=== PATIENT | male | born 1960 | race Caucasian/White ===

== ENCOUNTER 2024-12-10 19:37 | Inpatient (IN) ==
[2024-12-10 20:23] LABS: Hematocrit (blood only) 45.6 % (42.0-52.0); Hemoglobin 15.4 g/dl (14.0-18.0); Immature Granulocytes # (auto) 0.15 K/uL (0.01-0.20); Immature Granulocytes % (auto) 1.3 %; Mean Corpuscular Hemoglobin 30.4 pg (25.0-34.0); Mean Corpuscular Volume 89.9 fL (80.0-100.0); Platelet Count 171 K/uL (130-400); RDW Standard Deviation 41.2 fL (36.4-46.3); Red Blood Count 5.07 M/uL (4.70-6.10); White Blood Count 11.42 K/ul (4.8-10.8)
[2024-12-10 20:30] LABS: Alanine Aminotransferase 26.0 U/L (7-52); Albumin Globulin Ratio 1.6 (0.9-2); Alkaline Phosphatase 73.0 U/L (34-104); Anion Gap 8.0 (3-11); Bilirubin,Total 0.4 mg/dl (0.2-1.0); Blood Urea Nitrogen 22.0 mg/dl (6-23); Calcium 9.5 mg/dl (8.6-10.3); Carbon Dioxide 24.0 mmol/L (21-32); Chloride 109.0 mmol/L (98-107); Creatinine Clr Calc Pharmacy 77.4 ml/min; Globulin 2.8 gm/dl (2.5-4.0); Glucose 149.0 mg/dl (70-99(Fasting)); Lipase 18.0 U/L (11-82); Potassium 4.2 mmol/L (3.5-5.1); Sodium 141.0 mmol/L (136-145); Total Protein 7.2 gm/dl (6.0-8.3)
[2024-12-10 20:48] LABS: Appearance Urine Turbid (Clear); Epithelial Cell Urine 0-2 /hpf (0-2)
--- NOTE | 2024-12-10 21:03 | Emergency Department Note ---
Impression & Plan Bladder outlet obstruction, UTI (urinary tract infection), Hematuria ED Provider Note NAME: ALLISON GOMES AGE: 64 SEX: M : 1960 ARRIVES VIA: Walk-In INFORMANT: Patient, ED PROVIDER(S): Diane Hernandez MD CHIEF COMPLAINT: Difficulty urinary HPI: This is a 64-year-old male present for difficulty urinating. Patient states that yesterday he began having blood in his urine. Worsened today. Now states having dribbling with urine. He notes that he is not able to fully urinate today. He has an enlarged prostate which has not previously caused him any problems. Reports no blood thinners. Notes discomfort in the suprapubic region. ROS: See above HPI for pertinent positives & negatives. A total of 10 systems reviewed and were otherwise negative. PAST MEDICAL HISTORY: See Below PAST SURGICAL HISTORY: See Below FAMILY HISTORY: See Below SOCIAL HISTORY: See Below HOME MEDICATIONS: See Below ALLERGIES: See Below VITALS: See Below PHYSICAL EXAMINATION: General: resting comfortably in no acute distress Head: Normocephalic and atraumatic Eyes: Normal inspection, extraocular muscles intact Ear, nose, throat: Normal external exam Neck: Normal range of motion Respiratory: lungs clear to auscultation bilaterally Cardiovascular: Regular rate/rhythm, no murmur GI: soft, nontender, no guarding or rebound Extremities: nontender, moves all extremities Neuro: The patient awake and alert, appropriately conversive, no focal deficits, symmetric faces Skin: Warm, dry, and intact MEDICAL DECISION MAKING: This is 64-year-old male presents with difficulty urinating. Will place Valiente catheter as patient over 600 mL in his bladder scan. Considered bladder outlet obstruction secondary to infection, hematuria, blood clot, prostate issues. - Valiente catheter placed with return of significantly bloody urine. This continues with dark red/clotted urine for 1 to 2 hours -This was irrigated with return of blood mixed with minimal urine. - Patient was observed for close to 4 hours with no resolution in bleeding. Will place three-way Valiente and do case by irrigation. Patient require admission at this time -Blood work is reviewed showing leukocytosis 11.42. No anemia. Creatinine within normal limits. -As the patient has WBC count as well as bacteria, will treat with ceftriaxone Differential diagnosis: Bladder outlet obstruction, hematuria, UTI Independent History obtained from: Diagnostics interpreted by me: ECG: None Cardiac Monitoring: An order was placed for continuous cardiac monitoring. The monitor shows a rate of 81 with sinus rhythm. Past Med/Surg History Problem List (Updated 12/11/24 @ 00:56 by Diane Hernandez MD) Hematuria (Acute) UTI (urinary tract infection) (Acute) Bladder outlet obstruction (Acute) Social History Smoking Status: Former smoker Feels Safe at Home: Yes Allergies Allergies Allergy/AdvReac Type Severity Reaction Status Date / Time Penicillins Allergy Unknown Verified 12/10/24 22:28 Home Meds Home Medications Medication Instructions Recorded Confirmed No Known Home Medications 12/10/24 12/10/24 Results & Data (ED) Vital Signs Vital Signs - 24 hr 12/10/24 19:43 12/10/24 19:49 12/10/24 20:09 Temperature 36.4 C L Temperature Source Oral Pulse Rate 102 H 103 H Pulse Rate [Apical] Respiratory Rate 18 Respiratory Effort / Characteristics Non-Labored Spontaneous Respiratory Depth Normal Respiratory Pattern Regular Blood Pressure 166/110 H Blood Pressure [Right Arm] Blood Pressure Mean 128 Blood Pressure Mean [Right Arm] Pulse Oximetry 98 95 Oxygen Delivery Method Room Air Room Air Sepsis Recent Fever Within 48 Hours No Sepsis New/Unexplained Change in Mental Status N/A Sepsis Action Taken by Nursing No Action Required 12/10/24 20:16 12/10/24 22:00 12/10/24 23:00 Temperature Temperature Source Pulse Rate Pulse Rate [Apical] 88 87 92 H Respiratory Rate 21 24 14 Respiratory Effort / Characteristics Non-Labored Spontaneous Non-Labored Spontaneous Non-Labored Spontaneous Respiratory Depth Normal Normal Normal Respiratory Pattern Regular Regular Regular Blood Pressure Blood Pressure [Right Arm] 145/96 H 111/69 113/93 Blood Pressure Mean Blood Pressure Mean [Right Arm] 112 83 99 Pulse Oximetry 95 96 Oxygen Delivery Method Room Air Room Air Sepsis Recent Fever Within 48 Hours Sepsis New/Unexplained Change in Mental Status Sepsis Action Taken by Nursing 12/11/24 00:00 12/11/24 00:30 12/11/24 00:44 Temperature Temperature Source Pulse Rate 88 81 81 Pulse Rate [Apical] Respiratory Rate 16 12 Respiratory Effort / Characteristics Respiratory Depth Respiratory Pattern Blood Pressure 140/81 135/93 Blood Pressure [Right Arm] Blood Pressure Mean 100 106 Blood Pressure Mean [Right Arm] Pulse Oximetry 95 94 Oxygen Delivery Method Room Air Room Air Sepsis Recent Fever Within 48 Hours Sepsis New/Unexplained Change in Mental Status Sepsis Action Taken by Nursing Laboratory Data 12/10/24 19:53 12/10/24 19:53 Lab Results 12/10/24 12/10/24 Range/Units 19:49 19:53 WBC 11.42 H (4.8-10.8) K/ul RBC 5.07 (4.70-6.10) M/uL Hgb 15.4 (14.0-18.0) g/dl Hct 45.6 (42.0-52.0) % MCV 89.9 (80.0-100.0) fL MCH 30.4 (25.0-34.0) pg MCHC 33.8 (32.0-36.0) g/dL RDW Std Deviation 41.2 (36.4-46.3) fL RDW Coeff of Salvatore 12.6 (11.5-14.5) % Plt Count 171 (130-400) K/uL MPV 11.7 (9.4-12.4) fL Immature Gran % (Auto) 1.3 % Neut % (Auto) 77.3 % Lymph % (Auto) 14.9 % [place] % (Auto) 5.8 % Eos % (Auto) 0.3 % Baso % (Auto) 0.4 % Neut # (Auto) 8.84 H (1.40-6.50) K/uL Lymph # (Auto) 1.70 (1.20-3.40) K/uL [place] # (Auto) 0.66 H (0.11-0.59) K/uL Eos # (Auto) 0.03 (0.00-0.50) K/uL Baso # (Auto) 0.04 (0.00-0.20) K/uL Immature Gran # (Auto) 0.15 (0.01-0.20) K/uL Sodium 141 (136-145) mmol/L Potassium 4.2 (3.5-5.1) mmol/L Chloride 109 H (98-107) mmol/L Carbon Dioxide 24 (21-32) mmol/L Anion Gap 8 (3-11) BUN 22 (6-23) mg/dl Creatinine 1.03 (0.6-1.4) mg/dl Est Cr Clr Drug Dosing 77.4 ml/min eGFR 80.11 BUN/Creatinine Ratio 21.4 H (10-20) Glucose 149 H (70-99(Fasting)) mg/dl Calcium 9.5 (8.6-10.3) mg/dl Total Bilirubin 0.4 (0.2-1.0) mg/dl AST 21 (13-39) U/L ALT 26 (7-52) U/L Alkaline Phosphatase 73 (34-104) U/L Total Protein 7.2 (6.0-8.3) gm/dl Albumin 4.4 (3.4-5.0) gm/dl Globulin 2.8 (2.5-4.0) gm/dl Albumin/Globulin Ratio 1.6 (0.9-2) Lipase 18 (11-82) U/L Urine Color See Comment Urine Appearance Turbid A (Clear) Urine pH Not Reportable Ur Specific [place] 1.025 (1.000-1.030) Urine Protein Not Reportable Urine Glucose (UA) Not Reportable Urine Ketones Not Reportable Urine Blood Not Reportable Urine Nitrite Not Reportable Urine Bilirubin Not Reportable Urine Urobilinogen Not Reportable Ur Leukocyte Esterase Not Reportable Urine RBC >20 H (0-2) /hpf Urine WBC 11-20 H (0-5) /hpf Ur Epithelial Cells 0-2 (0-2) /hpf Urine Bacteria 1+ H (None Seen) Urine Comment Administered Medications Discontinued Medications Ceftriaxone Sodium (Rocephin) 2,000 mg in 50 mls @ 100 mls/hr IV NOW STA Stop: 12/10/24 22:48 Last Infusion: 12/10/24 23:09 Dose: Infused Documented By: Admin: 12/10/24 22:28 Dose: 100 mls/hr Documented By: ESTEE Discharge Plan Visit Data Chief Complaint: Hematuria Stated Complaint: CAN'T PEE, FEVER BLOOD IN URINE ED Provider: Diane Hernandez Discharge Problem: Bladder outlet obstruction, UTI (urinary tract infection), Hematuria Patient Disposition: Admitted As Inpatient Condition: Fair Forms Stand Alone Forms: [facility] [employer] Prescriptions Prescriptions: No Action No Known Home Medications Referrals Referrals: Jaime Munoz MD [Primary Care Provider] - Discharge Problem: UTI (urinary tract infection) Qualifiers: Urinary tract infection type: acute cystitis Hematuria presence: with hematuria Qualified Code(s): N30.01 - Acute cystitis with hematuria Hematuria Qualifiers: Hematuria type: gross Qualified Code(s): R31.0 - Gross hematuria
[2024-12-10] MEDS: cefTRIAXone SODIUM 2,000 MG/50 ML BAG IV STA (22:28)
--- NOTE | 2024-12-11 00:43 | History & Physical Report ---
Date of Service December 11, 2024 Assessment & Plan (1) Complicated UTI (urinary tract infection): Plan: Assessment and plan below following discussion of case with ED provider and reviewing patient history/pertinent normal/abnormal diagnostic test results. Complicated UTI presenting as painful gross hematuria History of BPH No overt sepsis for now Hyperglycemia ro DM Past tobacco abuse Admit to MedSurg Urine CS, Ceftriaxone Maintain Valiente catheter Urology consult re: hematuria causing urinary retention N.p.o. in anticipation of procedure Check hemoglobin A1c DVT prophylaxis. SCDs re: hematuria Full code Text document was generated using [employer] voice recognition software. It may contain grammatical or spelling errors. Kindly contact undersigned for clarification of any documentation item in question. History of Present Illness Chief Complaint: Hematuria Primary Care Provider: Jaime Munoz MD History obtained from patient and records. Medical history significant for BPH, past tobacco abuse. 2 days history of hematuria symptoms which progressed and later become associated with urinary retention yesterday. Achy lower abdominal pain. Denies chest pain, SOB, fever, chills. Some sweatiness at home. Took home Flomax yesterday which she has not taken the last few weeks due to dizziness and erectile dysfunction which he attributes to medication intake. Initial bladder residual of 600 cc documented at the ER. Subsequent Valiente catheter placement with note of passage of clots. IV ceftriaxone administered at the ER. Medical History as above Surgical History : Tonsillectomy, urologic procedures Family History : Bladder cancer Personal/Social history : Past tobacco abuse, no EtOH intake, maintenance work Allergies Allergy/AdvReac Type Severity Reaction Status Date / Time Penicillins Allergy Unknown Verified 12/10/24 22:28 Home Medications Medication Instructions Recorded Confirmed Type tamsulosin 0.4 mg capsule 0.4 mg PO DAILY 12/11/24 12/11/24 History Past Med/Surg History Problem List Complicated UTI (urinary tract infection) Hematuria (Acute) UTI (urinary tract infection) (Acute) Bladder outlet obstruction (Acute) Social History Smoking Status: Never smoker Hx Alcohol Use: No Hx Substance Use: No Preferred Language: Bhutanese Communication Ability: Effective Sales Trainee Required: No Beliefs That Will Affect Care: None Current Living Situation: Spouse Other Information That Helps Us Care for You: No Feels Safe at Home: Yes Safety Concerns: Feels Safe At This Time Review of Systems Review of Systems: As per HPI, all other systems reviewed and negative Physical Exam Physical Exam: GENERAL: Comfortable, pleasant, obese, no respiratory distress SKIN: Normal color, warm HEENT: Alopecia, pink palpebral conjunctivae, no ptosis, moist buccal mucosa NECK : Supple, no tenderness CHEST : CTA, no tenderness HEART : RRR, no obvious murmurs ABDOMEN: Some distention, minimal hypogastric tenderness EXTREMITIES : No LE swelling/tenderness, palpable pulses, no other conspicuous deformities noted NEUROLOGIC : Coherent, no facial asymmetry, no other gross focality Results & Data Results & Data Vital Signs (Past 12 Hours) Vital Signs Temp Pulse Pulse Resp BP BP Pulse Ox 12/10/24 23:00 92 H 14 113/93 12/10/24 22:00 87 24 111/69 96 12/10/24 20:16 88 21 145/96 H 95 12/10/24 20:09 95 12/10/24 19:49 103 H 12/10/24 19:43 36.4 C L 102 H 18 166/110 H 98 O2 Del Method 12/10/24 23:00 12/10/24 22:00 Room Air 12/10/24 20:16 Room Air 12/10/24 20:09 Room Air 12/10/24 19:49 12/10/24 19:43 Room Air Laboratory Results Laboratory Results WBC 11.42 K/ul (4.8-10.8) H 12/10/24 19:53 RBC 5.07 M/uL (4.70-6.10) 12/10/24 19:53 Hgb 15.4 g/dl (14.0-18.0) 12/10/24 19:53 Hct 45.6 % (42.0-52.0) 12/10/24 19:53 MCV 89.9 fL (80.0-100.0) 12/10/24 19:53 MCH 30.4 pg (25.0-34.0) 12/10/24 19:53 MCHC 33.8 g/dL (32.0-36.0) 12/10/24 19:53 RDW Std Deviation 41.2 fL (36.4-46.3) 12/10/24 19:53 RDW Coeff of Salvatore 12.6 % (11.5-14.5) 12/10/24 19:53 Plt Count 171 K/uL (130-400) 12/10/24 19:53 MPV 11.7 fL (9.4-12.4) 12/10/24 19:53 Immature Gran % (Auto) 1.3 % 12/10/24 19:53 Neut % (Auto) 77.3 % 12/10/24 19:53 Lymph % (Auto) 14.9 % 12/10/24 19:53 [place] % (Auto) 5.8 % 12/10/24 19:53 Eos % (Auto) 0.3 % 12/10/24 19:53 Baso % (Auto) 0.4 % 12/10/24 19:53 Neut # (Auto) 8.84 K/uL (1.40-6.50) H 12/10/24 19:53 Lymph # (Auto) 1.70 K/uL (1.20-3.40) 12/10/24 19:53 [place] # (Auto) 0.66 K/uL (0.11-0.59) H 12/10/24 19:53 Eos # (Auto) 0.03 K/uL (0.00-0.50) 12/10/24 19:53 Baso # (Auto) 0.04 K/uL (0.00-0.20) 12/10/24 19:53 Immature Gran # (Auto) 0.15 K/uL (0.01-0.20) 12/10/24 19:53 Sodium 141 mmol/L (136-145) 12/10/24 19:53 Potassium 4.2 mmol/L (3.5-5.1) 12/10/24 19:53 Chloride 109 mmol/L (98-107) H 12/10/24 19:53 Carbon Dioxide 24 mmol/L (21-32) 12/10/24 19:53 Anion Gap 8 (3-11) 12/10/24 19:53 BUN 22 mg/dl (6-23) 12/10/24 19:53 Creatinine 1.03 mg/dl (0.6-1.4) 12/10/24 19:53 Est Cr Clr Drug Dosing 77.4 ml/min 12/10/24 19:53 eGFR 80.11 12/10/24 19:53 BUN/Creatinine Ratio 21.4 (10-20) H 12/10/24 19:53 Glucose 149 mg/dl (70-99(Fasting)) H 12/10/24 19:53 Calcium 9.5 mg/dl (8.6-10.3) 12/10/24 19:53 Total Bilirubin 0.4 mg/dl (0.2-1.0) 12/10/24 19:53 AST 21 U/L (13-39) 12/10/24 19:53 ALT 26 U/L (7-52) 12/10/24 19:53 Alkaline Phosphatase 73 U/L (34-104) 12/10/24 19:53 Total Protein 7.2 gm/dl (6.0-8.3) 12/10/24 19:53 Albumin 4.4 gm/dl (3.4-5.0) 12/10/24 19:53 Globulin 2.8 gm/dl (2.5-4.0) 12/10/24 19:53 Albumin/Globulin Ratio 1.6 (0.9-2) 12/10/24 19:53 Lipase 18 U/L (11-82) 12/10/24 19:53 Urine Color See Comment 12/10/24 19:49 Urine Appearance Turbid (Clear) A 12/10/24 19:49 Urine pH Not Reportable 12/10/24 19:49 Ur Specific [place] 1.025 (1.000-1.030) 12/10/24 19:49 Urine Protein Not Reportable 12/10/24 19:49 Urine Glucose (UA) Not Reportable 12/10/24 19:49 Urine Ketones Not Reportable 12/10/24 19:49 Urine Blood Not Reportable 12/10/24 19:49 Urine Nitrite Not Reportable 12/10/24 19:49 Urine Bilirubin Not Reportable 12/10/24 19:49 Urine Urobilinogen Not Reportable 12/10/24 19:49 Ur Leukocyte Esterase Not Reportable 12/10/24 19:49 Urine RBC >20 /hpf (0-2) H 12/10/24 19:49 Urine WBC 11-20 /hpf (0-5) H 12/10/24 19:49 Ur Epithelial Cells 0-2 /hpf (0-2) 12/10/24 19:49 Urine Bacteria 1+ (None Seen) H 12/10/24 19:49 Urine Comment 12/10/24 19:49 CT abdomen pelvis: 1. Suboptimally distended with Valiente's catheter in situ, however, it shows diffuse mild wall thickening with perivesical haziness and intraluminal hyperdensity, representing blood clots likely with non-dependent air. The findings represent cystitis. CT urography with contrast is recommended to rule out remote possibility of neoplastic lesion. 2. Moderate prostatomegaly. Recommended evaluation with serum PSA. 3. Few low attenuation lesions in both lobes of liver, likely representing hepatic cysts The largest lesion measuring 38 x 35 mm in left lobe shows lobulated margins with a thin septation, representing complex cyst. 4. Uncomplicated cholelithiasis.
[2024-12-11] MEDS ORDERED: LORazepam 0.5 MG TAB PO PRN (00:47)
[2024-12-11] MEDS ORDERED: PROMETHAZINE 6.25 MG/50.25 ML BAG IV PRN (00:47)
[2024-12-11] MEDS ORDERED: MoRPHine SULFATE 4 MG/ML 1 ML CARP\\VIAL IV PRN (00:47)
[2024-12-11] MEDS: SODIUM CHLORIDE 0.9% 1,000 ML IV ONE (00:55)
[2024-12-11 02:03] LABS: Anion Gap 5.0 (3-11); Blood Urea Nitrogen 20.0 mg/dl (6-23); Calcium 9.0 mg/dl (8.6-10.3); Carbon Dioxide 24.0 mmol/L (21-32); Chloride 110.0 mmol/L (98-107); Creatinine Clr Calc Pharmacy 98.4 ml/min; Glucose 128.0 mg/dl (70-99(Fasting)); Potassium 4.2 mmol/L (3.5-5.1); Sodium 139.0 mmol/L (136-145)
[2024-12-11 03:13] LABS: Hematocrit (blood only) 41.1 % (42.0-52.0); Hemoglobin 14.1 g/dl (14.0-18.0); Immature Granulocytes # (auto) 0.10 K/uL (0.01-0.20); Immature Granulocytes % (auto) 0.9 %; Mean Corpuscular Hemoglobin 30.4 pg (25.0-34.0); Mean Corpuscular Volume 88.6 fL (80.0-100.0); Platelet Count 145 K/uL (130-400); RDW Standard Deviation 40.8 fL (36.4-46.3); Red Blood Count 4.64 M/uL (4.70-6.10); White Blood Count 11.70 K/ul (4.8-10.8)
--- NOTE | 2024-12-11 03:15 | CT Scan Report ---
EXAM: CT abd pelvis wo con CLINICAL HISTORY: Hematuria, pain. TECHNIQUE: CT of the abdomen and pelvis was performed, with the following protocol: axial images, and reconstructed coronal and sagittal images. No Intravenous contrast was administered. One of the following dose reduction techniques was utilized for this exam: Automated exposure control, adjustment of the mA and/or kV according to patient size, and use of iterative reconstruction. COMPARISON: None. FINDINGS: Sections of lower thorax show minimal subpleural fibroatelectatic changes. Small sliding hiatus hernia noted. Abdomen: Liver: Normal in size, and density. Few low attenuation lesions in both lobes of liver, likely representing hepatic cysts The largest lesion measuring 38 x 35 mm in left lobe shows lobulated margins with a thin septation, representing complex cyst. Gallbladder and Biliary System: The gallbladder is distended and shows 8 mm calculus in the neck region. No radiodense gallstones were identified. Pancreas: Pancreatic head, body, and tail are visualized and appear normal in size and density. Spleen: Normal in size, shape, and density. No splenic lesions or masses were identified. Kidneys and Adrenal Glands: Both kidneys are normal in size. No renal calculi or hydronephrosis. Minimal perinephric fat stranding noted. Right adrenal gland appears unremarkable. Small 7 mm nodule in medial limb of left adrenal gland, possibly adenoma. Pelvis: Urinary Bladder: Suboptimally distended with Valiente's catheter in situ, however, it shows diffuse mild wall thickening with perivesical haziness and intraluminal hyperdensity, representing blood clots likely with non-dependent air. Prostate is enlarged in size, measuring 50 x 52 x 51 mm. Few tiny calcific foci in its parenchyma Peritoneal and Retroperitoneal Structures: No free fluid or abnormal fluid collections were identified within the abdomen or pelvis. Subcentimetric mesenteric nodes noted. The abdominal aorta and its branches shows atherosclerotic changes with calcified plaques. Bowel: The visualized bowel loops are normal in caliber and appearance. No evidence of bowel obstruction or wall thickening. Appendix appears unremarkable. Bones and Soft Tissues: Mild degenerative changes in lumbar spine. Grade I anterolisthesis of L5 over S1 with left L5 pars defect. Minimal grade I retrolisthesis of L1 over L2. Small sclerotic foci in right iliac and pubic bones, these represent bony islands likely. Low suspicion for sclerotic metastasis Bilateral inguinal hernias containing peritoneal fat noted. Left paraumbilical hernia containing omental fat. Small 35 x 15 mm intramuscular lipoma in left lateral abdominal wall. IMPRESSION: 1. Suboptimally distended with Vlaiente's catheter in situ, however, it shows diffuse mild wall thickening with perivesical haziness and intraluminal hyperdensity, representing blood clots likely with non-dependent air. The findings represent cystitis. CT urography with contrast is recommended to rule out remote possibility of neoplastic lesion. 2. Moderate prostatomegaly. Recommended evaluation with serum PSA. 3. Few low attenuation lesions in both lobes of liver, likely representing hepatic cysts The largest lesion measuring 38 x 35 mm in left lobe shows lobulated margins with a thin septation, representing complex cyst. 4. Uncomplicated cholelithiasis. 5. Rest of the findings as described above. Electronically signed by Surjit Harris 12-11-2024 03:14 AM
[2024-12-11 07:41] LABS: Hemoglobin A1C 5.5 % (4.5-5.6)
[2024-12-11] MEDS: TAMSULOSIN HCL 0.4 MG CAP PO SCH (09:11)
--- NOTE | 2024-12-11 09:27 | Urology Consultation ---
Date of Consultation December 11, 2024 Assessment & Plan (1) Bladder outlet obstruction: (2) Hematuria: (3) Complicated UTI (urinary tract infection): 64 year old male admitted for hematuria and clot retention. Patient afebrile, hemodynamically stable Labs reviewed - creatinine 0.81, WBC 11.7, Hgb 14.1 Urine culture pending CTAP showed Valiente in place, a small amount of clot and air within the bladder, enlarged prostate Valiente draining pink urine with CBI on slow Continue CBI and plan to titrate as appropriate Nursing can manually irrigate catheter as needed for suprapubic pain, clot retention No acute intervention at this time, patient can have diet today Continue Flomax Continue broad spectrum antibiotics and follow culture Recommend he follow-up with his established urologist for hematuria work- up/ongoing management after discharge will follow History of Present Illness Reason for Consultation: Hematuria Attending Physician: Mina Narayan MD History of Present Illness This is a 64-year-old male who presented to the emergency department on 12/10/2024 for evaluation of hematuria and difficulty voiding. On arrival to ED, he was afebrile, tachycardic and hypertensive. Bladder scan revealed greater than 600 mL. Valiente catheter was placed with return of bloody urine. His catheter was manually irrigated. Patient was observed in the ED and his Valiente catheter continued with hematuria and clots. A three-way Valiente catheter was placed and continuous bladder irrigation was initiated. Labs in ED showed creatinine 1.03, WBC 11.42, hemoglobin 15.4, hematocrit 45.6. Urinalysis was not reportable, microscopic exam with >20 RBC, 11-20 WBC, 0-2 epithelial cells and 1+ bacteria. He received ceftriaxone in the emergency department. He was admitted to the hospital medicine service. Urology is consulted for hematuria. Labs today reviewedcreatinine 0.81, WBC 11.7, hemoglobin 14.1 CT abdomen/pelvis showed no stones or hydronephrosis. Valiente catheter within the bladder. There is mild wall thickening and small amount of intraluminal hyperdensity consistent with clot and small amount of air present. Prostate markedly enlarged. Patient seen and examined at bedside this morning. He is awake and resting in bed. Denies suprapubic or flank discomfort at present. Valiente intact and draining light pink with CBI on slow. He reports his catheter was manually irrigated by nursing around 3 AM. He reports he developed painless hematuria 2 days ago, then yesterday began having difficulty voiding/dribbling which prompted presentation. He reports he follows with Dr. Moore with [facility] urology. He has history of BPH with lower urinary tract symptoms on Flomax. He has history of elevated PSA and underwent prostate biopsy, which he reports was negative. Allergies Allergy/AdvReac Type Severity Reaction Status Date / Time Penicillins Allergy Unknown Verified 12/10/24 22:28 Home Medications Medication Instructions Recorded Confirmed Type tamsulosin 0.4 mg capsule 0.4 mg PO DAILY 12/11/24 12/11/24 History Patient History Social History Smoking Status: Never smoker Hx Alcohol Use: No Hx Substance Use: No Preferred Language: [place] Communication Ability: Effective Parts Picker Required: No Beliefs That Will Affect Care: None Current Living Situation: Spouse Other Information That Helps Us Care for You: No Feels Safe at Home: Yes Safety Concerns: Feels Safe At This Time Review of Systems Review of Systems: ROS was performed with pertinent positives noted as above; all other systems negative Physical Exam Constitutional: well developed and well nourished; no acute distress Respiratory: normal respiratory effort; no respiratory distress and no labored breathing Gastrointestinal (Abdomen): Inspection/Auscultation: abdomen normal to inspection Musculoskeletal: Head/Neck/Chest: normocephalic Neurologic: moves all extremities and awake Psychiatric: Orientation: alert and oriented x 3 Genitourinary: Valiente draining pink urine with CBI on slow, there is a strip of clot/sediment adhered to the tubing which intermittently blushes the urine Results & Data Vital Signs (Past 12 Hours) Vital Signs Temp Pulse Pulse Pulse Resp BP BP 12/11/24 07:12 36.8 C 68 16 118/70 12/11/24 02:22 36.6 C 78 18 135/82 12/11/24 02:19 36.6 C 78 18 135/82 12/11/24 01:31 76 18 146/77 H 12/11/24 01:00 87 20 124/89 12/11/24 00:44 81 12/11/24 00:30 81 12 135/93 12/11/24 00:00 88 16 140/81 12/10/24 23:00 92 H 14 113/93 12/10/24 22:00 87 24 111/69 Pulse Ox O2 Del Method 12/11/24 07:12 95 Room Air 12/11/24 02:22 94 Room Air 12/11/24 02:19 94 Room Air 12/11/24 01:31 94 Room Air 12/11/24 01:00 95 Room Air 12/11/24 00:44 12/11/24 00:30 94 Room Air 12/11/24 00:00 95 Room Air 12/10/24 23:00 12/10/24 22:00 96 Room Air PG Care Time/CCT Total # of Minutes Spent Total Time Spent with Patient: Total time spent is greater than 50% in coordination of care (as documented) at patient's floor/unit and/or counseling patient: Coding Level of Care Code 20484 INT INP/OBS CARE 2/55MIN Diagnoses Bladder outlet obstruction N32.0 Hematuria R31.0 Hematuria type: gross Complicated UTI (urinary tract infection) N39.0 (2) Hematuria Hematuria type: gross Qualified Code(s): R31.0 - Gross hematuria
--- NOTE | 2024-12-11 19:41 | Communication Note ---
Date of Service: December 11, 2024 seen resting in bed, comfortable, in good spirits, very pleasant States he feels fine overall No abdominal pain hematuria seems to be improving No other issues with Valiente catheter Fevers or chills Clear breath sounds bilaterally, normal rate regular rhythm Abdomen soft nontender Valiente catheter pink-tinged urine Urinary retention likely secondary to Prostatomegaly Hematuria, possible UTI -- urology on board -- status post Valiente catheter placement while the ER continue continuous bladder irrigation follow-up urine culture continue empiric Aztreonam Mina Narayan MD
[2024-12-11] MEDS: cefTRIAXone SODIUM 2,000 MG/50 ML BAG IV SCH (22:49)
[2024-12-12 07:09] VITALS: RESP 16
[2024-12-12 08:03] LABS: Hematocrit (blood only) 41.6 % (42.0-52.0); Hemoglobin 13.9 g/dl (14.0-18.0); Immature Granulocytes # (auto) 0.09 K/uL (0.01-0.20); Immature Granulocytes % (auto) 0.9 %; Mean Corpuscular Hemoglobin 30.3 pg (25.0-34.0); Mean Corpuscular Volume 90.8 fL (80.0-100.0); Platelet Count 144 K/uL (130-400); RDW Standard Deviation 42.2 fL (36.4-46.3); Red Blood Count 4.58 M/uL (4.70-6.10); White Blood Count 9.99 K/ul (4.8-10.8)
[2024-12-12 08:33] LABS: Alanine Aminotransferase 19.0 U/L (7-52); Albumin Globulin Ratio 1.7 (0.9-2); Alkaline Phosphatase 59.0 U/L (34-104); Anion Gap 5.0 (3-11); Bilirubin,Total 0.7 mg/dl (0.2-1.0); Blood Urea Nitrogen 17.0 mg/dl (6-23); Calcium 8.9 mg/dl (8.6-10.3); Carbon Dioxide 26.0 mmol/L (21-32); Chloride 108.0 mmol/L (98-107); Creatinine Clr Calc Pharmacy 95.5 ml/min; Globulin 2.3 gm/dl (2.5-4.0); Glucose 104.0 mg/dl (70-99(Fasting)); Potassium 4.1 mmol/L (3.5-5.1); Sodium 139.0 mmol/L (136-145); Total Protein 6.3 gm/dl (6.0-8.3)
--- NOTE | 2024-12-12 09:34 | Urology Progress Note ---
Date of Service December 12, 2024 Assessment & Plan (1) Hematuria: (2) Bladder outlet obstruction: (3) Complicated UTI (urinary tract infection): Plan Follow-up of hematuria, clot retention Patient afebrile with stable vitals Labs today reviewedcreatinine 0.83, WBC 9.99, hemoglobin 13.9 Urine culture with 3 types of organisms present, all low counts of probable mixed marcela Nursing reports catheter required manual irrigation x 2 overnight Three-way Valiente in place draining clear to minimally pink urine with CBI on slow I manually irrigated catheter at bedside this morning, no clots returned Hematuria appears to be improving Plan to wean CBI as appropriate Nursing can manually irrigate catheter as needed if it becomes obstructed Continue Flomax Continue empiric antibiotics No acute intervention at this time Patient can follow-up with Dr. Moore for hematuria workup/ongoing management after discharge will follow Admission and Anticipated Discharge Date Admission Date: December 11, 2024 Subjective Nursing reports that Valiente catheter was manually irrigated twice overnight Patient seen and examined at bedside He denies pain at present Valiente draining clear to minimally pink urine with CBI on slow, there are a few stringy clots adhered to tubing, which passed through during exam No fever or chills Review of Systems Constitutional: as per Subjective / HPI Genitourinary: + as per Subjective / HPI Physical Exam Constitutional: well developed and well nourished; no acute distress Respiratory: normal respiratory effort; no respiratory distress and no labored breathing Gastrointestinal (Abdomen): Inspection/Auscultation: abdomen normal to inspection Musculoskeletal: Head/Neck/Chest: normocephalic Neurologic: moves all extremities and awake Psychiatric: Orientation: alert and oriented x 3 Genitourinary: Valiente draining clear to minimally pink urine with CBI on slow, there are a few stringy clots adhered to tubing, which passed through during exam Manually irrigated catheter during exam with approximately 300 mL of sterile water. No clots returned. Results & Data Vital Signs (Past 12 Hours) Vital Signs Temp Pulse Resp BP Pulse Ox O2 Del Method 12/12/24 07:07 36.6 C 72 16 137/88 96 Room Air 12/11/24 23:56 36.9 C 90 18 132/81 98 Room Air PG Care Time/CCT Total # of Minutes Spent Total Time Spent with Patient: Total time spent is greater than 50% in coordination of care (as documented) at patient's floor/unit and/or counseling patient: Coding Level of Care Code 96002 SUB INP/OBS CARE 235MIN Diagnoses Hematuria R31.0 Hematuria type: gross Bladder outlet obstruction N32.0 Complicated UTI (urinary tract infection) N39.0 (1) Hematuria Hematuria type: gross Qualified Code(s): R31.0 - Gross hematuria
[2024-12-12] MEDS: cefTRIAXone SODIUM 2,000 MG/50 ML BAG IV SCH (09:58)
--- NOTE | 2024-12-12 16:46 | Hospitalist Progress Note ---
Date of Service December 12, 2024 Assessment & Plan (1) Complicated UTI (urinary tract infection): Plan: Mr. Crabtree is a 64 year old medical history significant for BPH, past tobacco abuse who is admitted for hematuria. #Complicated UTI presenting as painful gross hematuria #History of BPH No overt sepsis for now UA with all low counts of marcela continue CBI manually irrigate as needed Continue flomax continue antibiotics Hyperglycemia ro DM a1c 5.5 Past tobacco abuse DVT prophylaxis. SCDs re: hematuria Full code Admission and Anticipated Discharge Date Admission Date: December 11, 2024 Subjective reports frustration with hematuria denies any suprapubic pain or other acute concerns Physical Exam Constitutional: WD/WN, vitals as above Respiratory: normal respiratory effort, lungs clear to auscultation Cardiovascular: RRR, no murmur, no edema Musculoskeletal: no cyanosis or clubbing, extremities motor strength 5/5 Results & Data Results & Data Vital Signs (Past 12 Hours) Vital Signs Temp Pulse Resp BP Pulse Ox O2 Del Method 12/12/24 14:35 36.6 C 84 16 120/80 94 Room Air 12/12/24 07:07 36.6 C 72 16 137/88 96 Room Air Laboratory Results Short CBC 12/12/24 Range/Units 07:40 WBC 9.99 (4.8-10.8) K/ul Hgb 13.9 L (14.0-18.0) g/dl Hct 41.6 L (42.0-52.0) % Plt Count 144 (130-400) K/uL BMP 12/12/24 07:40 Sodium 139 Potassium 4.1 Chloride 108 H Carbon Dioxide 26 BUN 17 Creatinine 0.83 Glucose 104 H Calcium 8.9 Liver Function 12/12/24 Range/Units 07:40 Total Bilirubin 0.7 (0.2-1.0) mg/dl AST 17 (13-39) U/L ALT 19 (7-52) U/L Alkaline Phosphatase 59 (34-104) U/L Albumin 4.0 (3.4-5.0) gm/dl Medications Administered Home Medications Medication Instructions Recorded Confirmed Last Taken tamsulosin 0.4 mg capsule 0.4 mg PO DAILY 12/11/24 12/11/24 Unknown Active Medications Generic Name Dose Route Start Last Admin Trade Name Freq PRN Reason Stop Dose Admin Ceftriaxone Sodium 2,000 mg in 50 mls @ 100 mls/hr 12/12/24 10:00 12/12/24 10:41 Rocephin IV 12/22/24 09:59 Infused Q24H KYLE Infusion Tamsulosin HCl 0.4 mg 12/11/24 09:00 12/12/24 09:24 Tamsulosin Hcl 0.4 Mg Cap PO 01/10/25 08:59 0.4 mg DAILY KYLE Administration
[2024-12-13 07:53] VITALS: BP 129/83; PULSE 68; TEMP 97.5; O2SAT 97
[2024-12-13 08:39] LABS: Hematocrit (blood only) 40.0 % (42.0-52.0); Hemoglobin 13.8 g/dl (14.0-18.0); Mean Corpuscular Hemoglobin 31.2 pg (25.0-34.0); Mean Corpuscular Volume 90.3 fL (80.0-100.0); Platelet Count 159 K/uL (130-400); RDW Standard Deviation 41.1 fL (36.4-46.3); Red Blood Count 4.43 M/uL (4.70-6.10); White Blood Count 9.05 K/ul (4.8-10.8)
[2024-12-13 09:03] LABS: Anion Gap 7.0 (3-11); Blood Urea Nitrogen 18.0 mg/dl (6-23); Calcium 9.0 mg/dl (8.6-10.3); Carbon Dioxide 27.0 mmol/L (21-32); Chloride 106.0 mmol/L (98-107); Creatinine Clr Calc Pharmacy 89.1 ml/min; Glucose 99.0 mg/dl (70-99(Fasting)); Magnesium 2.1 mg/dl (1.7-2.4); Potassium 3.9 mmol/L (3.5-5.1); Sodium 140.0 mmol/L (136-145)
--- NOTE | 2024-12-13 11:07 | Urology Progress Note ---
Date of Service December 13, 2024 Assessment & Plan (1) Hematuria: (2) Bladder outlet obstruction: (3) Complicated UTI (urinary tract infection): Plan Follow-up of hematuria Patient afebrile with stable vitals Labs today reviewedcreatinine 0.89, WBC 9.05, hemoglobin 13.8 Urine culture with 3 types of organisms present, all low counts of probable mixed marcela CBI clamped yesterday afternoon and remained clamped overnight Catheter was removed this morning for void trial Monitor for void and bladder scan as needed If patient unable to void or elevated PVR, then recommend replacement of Valiente catheter and can pursue voiding trial as outpatient Continue Flomax Patient can follow-up with Dr. Moore for hematuria workup/ongoing management after discharge will sign off, please contact our service with any additional questions or concerns Admission and Anticipated Discharge Date Admission Date: December 11, 2024 Subjective Patient seen and examined at bedside this morning No acute issues overnight CBI remained clamped overnight Valiente catheter was removed this morning for void trial just prior to my arrival Denies pain Review of Systems Constitutional: as per Subjective / HPI Genitourinary: + as per Subjective / HPI Physical Exam Constitutional: well developed and well nourished; no acute distress Respiratory: normal respiratory effort; no respiratory distress and no labored breathing Gastrointestinal (Abdomen): Inspection/Auscultation: abdomen normal to inspection Musculoskeletal: Head/Neck/Chest: normocephalic Neurologic: moves all extremities and awake Psychiatric: Orientation: alert and oriented x 3 Results & Data Vital Signs (Past 12 Hours) Vital Signs Temp Pulse Resp BP BP Pulse Ox O2 Del Method 12/13/24 07:52 36.4 C L 68 16 129/83 97 Room Air 12/12/24 23:32 36.5 C 60 16 139/87 98 Room Air PG Care Time/CCT Total # of Minutes Spent Total Time Spent with Patient: Total time spent is greater than 50% in coordination of care (as documented) at patient's floor/unit and/or counseling patient: Coding Level of Care Code 06452 SUB INP/OBS CARE 2/35MIN Diagnoses Hematuria R31.0 Hematuria type: gross Bladder outlet obstruction N32.0 Complicated UTI (urinary tract infection) N39.0 (1) Hematuria Hematuria type: gross Qualified Code(s): R31.0 - Gross hematuria
--- NOTE | 2024-12-13 14:16 | Discharge Summary ---
Discharge Summary Date of Service December 13, 2024 Principal Dx & Hospital Course #1 = Principal Diagnosis (1) Complicated UTI (urinary tract infection): Mr. Crabtree is a 64 year old medical history significant for BPH, past tobacco abuse who is admitted for hematuria. He required CBI for 48 hours. He was started on CTX. UA did reveal mixed marcela. Urine began to clear with few clot. Urology evaluated and recommended follow up with Urologist Dr. Moore. On day of discharge, void trial was performed and successful with clear urine. Patient denies any fevers, chills, pain or other symptoms. #Complicated UTI presenting as painful gross hematuria #History of BPH No overt sepsis for now UA with all low counts of marcela void trial successful 12/13/2024 Continue flomax continue antibiotics , cefidinir 300mg bid Hyperglycemia ro DM a1c 5.5 Past tobacco abuse Notes For Next Care Provider Medication Changes From Visit cefidinir 300mg bid Admission HPI Per Admitting Provider History obtained from patient and records. Medical history significant for BPH, past tobacco abuse. 2 days history of hematuria symptoms which progressed and later become associated with urinary retention yesterday. Achy lower abdominal pain. Denies chest pain, SOB, fever, chills. Some sweatiness at home. Took home Flomax yesterday which she has not taken the last few weeks due to dizziness and erectile dysfunction which he attributes to medication intake. Initial bladder residual of 600 cc documented at the ER. Subsequent Valiente catheter placement with note of passage of clots. IV ceftriaxone administered at the ER. Medical History as above Surgical History : Tonsillectomy, urologic procedures Family History : Bladder cancer Personal/Social history : Past tobacco abuse, no EtOH intake, maintenance work Admission Exam Per Admitting Provider GENERAL: Comfortable, pleasant, obese, no respiratory distress SKIN: Normal color, warm HEENT: Alopecia, pink palpebral conjunctivae, no ptosis, moist buccal mucosa NECK : Supple, no tenderness CHEST : CTA, no tenderness HEART : RRR, no obvious murmurs ABDOMEN: Some distention, minimal hypogastric tenderness EXTREMITIES : No LE swelling/tenderness, palpable pulses, no other conspicuous deformities noted NEUROLOGIC : Coherent, no facial asymmetry, no other gross focality Discharge Exam Constitutional WD/WN, vitals as above Respiratory normal respiratory effort, lungs clear to auscultation Cardiovascular RRR, no murmur, no edema Musculoskeletal no cyanosis or clubbing, extremities motor strength 5/5 Updated Medication List Medication Instructions Recorded Confirmed Type tamsulosin 0.4 mg capsule 0.4 mg PO DAILY 12/11/24 12/11/24 History cefdinir 300 mg capsule 300 mg PO BID 3 days #6 caps 12/13/24 Rx Hospital Stay Data Consultations 12/11/24 00:39 ED Decision to Admit Stat 12/11/24 00:46 Consult Urology Routine Diagnostic Imagining Performed 12/11/24 01:28 CT Abd and Pelvis [CT abd pelvis wo con] Stat Pending Results Patient Have Any Pending Studies at Discharge: No Discharge Instructions Given to Patient (Per Discharging Provider) You were admitted for acute hematuria, or blood in the urine. Your urine culture revealed mixed colonies of bacteria normally on the skin. You will continue a short course of antibiotic, Cefdinir 300mg two times a day, for three more days starting tomorrow morning. You will need to promptly follow up with Dr. Moore to undergo further evaluation of blood in your urine. Please return to ED if you experience any difficulty emptying your bladder. Total Time Total Time Spent Total Time Spent (In Minutes): 35
== END 2024-12-13 15:16 | disposition home or self-care (01) | DRG 690 ==
LOC: ED 19:37 → 3N 12-11 00:45 → SUATTDRO 12-11 00:45 → 3N 12-11 01:53
DX: Z79.899 Other long term (current) drug therapy; N39.0 Urinary tract infection, site not specified; Z87.891 Personal history of nicotine dependence; R73.9 Hyperglycemia, unspecified; N40.1 Benign prostatic hyperplasia with lower urinary tract symptoms; N13.8 Other obstructive and reflux uropathy; Z88.0 Allergy status to penicillin